=== PATIENT | male | born 1965 | race Caucasian/White ===

== ENCOUNTER → 2020-03-04 14:22 | Outpatient (BNVA) | payer MEDICAID, SELFPAY | PROVIDERS: PCP Family Medicine; Referring Provider Family Medicine; Visit Provider Physician Assistant | DX: Z76.89 Persons encountering health services in other specified circumstances (principal) ==

== ENCOUNTER 2021-08-19 17:16 | Emergency (ER) | payer MEDICAID, SELFPAY ==
[2021-08-19 17:29] VITALS: BP 00/00; PULSE 111; RESP 22; TEMP 36.8; O2SAT 99; BMI 28.3
--- NOTE | 2021-08-19 17:31 | ED.OVERDOSE ---
HPI - Overdose General Chief Complaint: Overdose Stated Complaint: heroin overdose Source: patient and EMS Mode of arrival: EMS Limitations: no limitations History of Present Illness HPI Narrative: 55-year-old male presents via EMS for heroin overdose. States that he used 4 bags of heroin, was given 12 mg of Narcan by a bystander. Patient states that he does not want to be here. complaint: accidental overdose Intent: other (Wanted to get high) Context: Intentional Overdose: drug/ETOH problems Context: Accidental Overdose: wanted to get high Treatments Prior to Arrival: narcan Related Data Home Medications Medication Instructions Recorded Confirmed amlodipine 10 mg tablet 10 mg PO DAILY 03/04/20 aspirin 325 mg tablet,delayed 325 mg PO DAILY 03/04/20 release buprenorphine 8 mg-naloxone 2 mg 2 film BUCCAL DAILY 03/04/20 03/04/20 sublingual film (Suboxone) lisinopril 40 mg tablet 40 mg PO DAILY 03/04/20 omeprazole 20 mg capsule,delayed 20 mg PO DAILY 03/04/20 release Previous Rx's Medication Instructions Recorded bisacodyl 5 mg tablet,delayed 5 mg PO ONCE 1 Days #2 tab 03/04/20 release (Dulcolax (bisacodyl)) miralax See Rx Instructions PO ONCE #238 g 03/04/20 Allergies Allergy/AdvReac Type Severity Reaction Status Date / Time No Known Allergies Allergy Unverified 01/02/20 15:29 [No Known Allergies*] Review of Systems Review of Systems: Constitutional: No Fever, No Chills ENT/Mouth: No sore throat, No Rhinorrhea Eyes: No Eye Pain, No Swelling, No Redness Cardiovascular: No Chest Pain, No SOB Respiratory: No Cough, No Sputum Gastrointestinal: No Nausea, No Vomiting, No Diarrhea, No abdominal Pain Genitourinary: No Dysuria, No Hematuria Musculoskeletal: No joint pain, No Myalgias, No Joint Swelling Skin: No Skin Lesions, No rash Neuro: No Weakness, No Numbness, No Loss of Consciousness, No Dizziness, No Headache Psych: Positive heroin abuse, No Anxiety, No Depression, No SI/HI/AH/VH Heme/Lymph: No Bruising, No Bleeding,No Lymphadenopathy Endocrine: No Polyuria, No Polydipsia Yes all other systems are reviewed and are negative PMFSH Past Medical History Attestation statement: The following information was validated with the patient. Source: old records reviewed Medical History Acid reflux HCV (hepatitis C virus) Hepatic cirrhosis Hernia HTN (hypertension) Family History Family History Father No problems noted. Mother No problems noted. Son No problems noted. Daughter No problems noted. Social History Social History Alcohol intake: current Alcohol intake frequency: a few times a month Alcohol type: beer Cigarette Packs Per Day: 0.50 Advance Directives: No Advance Directives Information Provided: No Current occupational status: unemployed Physical Exam Vital Signs: Vital Signs: Last Vital Signs Temp 98.2 F 08/19/21 17:29 Pulse 108 H 08/19/21 17:55 Resp 22 H 08/19/21 17:55 BP 00/00 L 08/19/21 17:29 Pulse Ox 99 08/19/21 17:55 BMI result Body Mass Index 28.3 Appearance: Alert. Oriented X3. No acute distress. Unkempt. Eyes: Pupils equal, round and reactive to light. Sclera nonicteric. ENT: Pharynx normal. Moist mucous membranes. Neck: Normal inspection. Neck supple. CVS: Normal heart rate and rhythm. Pulses normal. Respiratory: No respiratory distress. Breath sounds normal. Abdomen: Soft and nontender. Skin: Skin warm and dry. Normal skin color. Normal skin turgor. Extremities: No lower extremity edema. Gait well-balanced will coordinated. Neuro: No motor deficit. No sensory deficit. Cranial nerves 2-12 intact. Course Course Course Narrative: 55-year-old male presents as a heroin overdose via EMS. Patient states he does not want to be here, speaking in complete sentences. Angry. Belligerent. Denies suicidal and homicidal ideation. Does not want recovery or detox. Multiple attempts to redirect this patient unsuccessful. Attempting to leave, attempting to enter other person's rooms. As patient is not suicidal or homicidal, is alert oriented x4, answering questions appropriately but in an angry tone. Plan of care is to discharge against medical advice. I did discuss this case with attending, attending agrees plan of care 17:52 patient in the restroom, trying to pull off the sensor flushing device off the wall because he believes the camera. Patient unable to be redirected. Continues to deny suicidal and homicidal ideation. Gait is steady and well balanced. Security called to escort this patient off the facility. MDM - Overdose Differential Diagnosis Differential diagnosis: Likely drug overdose Medical Records Attestation: I reviewed the patient's medical records. Discharge Plan Discharge Clinical Impression: Drug overdose Patient Disposition: Left Against Medical Advice Instructions: Adult Overdose (ED) Additional Instructions: You are leaving against medical advice. Please consider detox. Thank you for choosing this emergency department for evaluation. Please follow-up with primary care physician as needed. Return to the emergency department for any new, concerning, or worsening symptoms. Prescriptions: No Action omeprazole 20 mg capsule,delayed release(DR/EC) 20 mg PO DAILY 0RF lisinopril 40 mg tablet 40 mg PO DAILY 0RF amlodipine 10 mg tablet 10 mg PO DAILY 0RF aspirin 325 mg tablet,delayed release (DR/EC) 325 mg PO DAILY 0RF buprenorphine-naloxone [Suboxone] 8-2 mg film 2 film buccal DAILY 0RF Rx Instructions: place 1 film on inside of (each) cheek bisacodyl [Dulcolax (bisacodyl)] 5 mg tablet,delayed release (DR/EC) 5 mg PO ONCE 1 Days Qty: 2 0RF miralax See Rx Instructions PO ONCE Qty: 238 0RF Rx Instructions: 238 grams PO once; mixed with 64 oz gatorade or crystal light Stand Alone Forms: Against Medical Advice Interventions: ED Discharge Assessment Last Done: 08/19/21 17:55 Discharge Date/Time: 08/19/21 17:56
--- NOTE | 2021-08-19 17:40 | PC.NURSE ---
pt found ambulating in hallways, refusing to stay in room. ambulating to xray, redirected back to room w/o incident.
--- NOTE | 2021-08-19 17:52 | PC.NURSE ---
pt attempting to walk into other pts rooms, had been ripping apart toilet in bathroom. pt has been ambulatory w steady gait, rr even/unlabored. pt does not want detox, debt recovery officer at bedside. provider aware of pt status. pt denies si/hi. security at bedside to guide pt to decon for belongings.
[2021-08-19 17:55] VITALS: PULSE 108; RESP 22; O2SAT 99
== END 2021-08-19 17:56 | disposition left against medical advice (07) ==
PROVIDERS: Emergency Provider Emergency Medicine Emergency Medical Services
DX: T40.1X1A Poisoning by heroin, accidental (unintentional), initial encounter (principal); Y92.9 Unspecified place or not applicable; F17.210 Nicotine dependence, cigarettes, uncomplicated; Z79.899 Other long term (current) drug therapy; Z79.82 Long term (current) use of aspirin; Z71.6 Tobacco abuse counseling
CPT/HCPCS: 99282

== ENCOUNTER 2022-09-25 17:57 | Inpatient (IN) | payer MEDICAID, SELFPAY ==
--- NOTE | ~2022-09-25 | NM_ITS ---
EXAMINATION: BILIARY TRACT IMAGING STUDY WITH CCK CLINICAL INFORMATION: Cirrhosis, possible acalculous cholecystitis.. COMPARISON: No previous biliary scan is available for comparison. Abdominal ultrasound and CT scan of the abdomen and pelvis, both dated 09/25/2022 are available for comparison.. TECHNIQUE: Serial gamma scintillation camera images were obtained over the abdomen for a total observation period of 93 minutes following the intravenous administration of 5.0 mCi Tc-99m Mebrofenin. FINDINGS: There is good concentration of activity in the liver by 5 minutes post injection. Biliary activity is visualized by 15 minutes. The gallbladder is well visualized by 20 minutes. Small bowel is well visualized by 25 minutes. At 6 minutes post radiopharmaceutical injection, a 30-minute infusion of 1.7 micrograms Sincalide was then begun and an additional 40 minutes of images were obtained. There is good emptying of the gallbladder. By the end of the study there is good clearance of activity from the liver and visualization of diffuse small bowel activity. The calculated gallbladder ejection fraction is 73% (normal gallbladder ejection fraction is greater than 35%). NM/NM hepatobiliary w pharm IMPRESSION: Visualization of the gallbladder is evidence of a patent cystic duct and strong evidence against the diagnosis of acute cholecystitis. The common bile duct is patent. Gallbladder emptying and ejection fraction are normal. Liver function appears normal.
--- NOTE | ~2022-09-25 | XR_ITS ---
EXAMINATION: XR CHEST CLINICAL INFORMATION: Chest pain COMPARISON: Prior chest CT 2018 TECHNIQUE: Frontal view of the chest was obtained. FINDINGS: No significant abnormality is noted involving the heart, lungs, mediastinum, bony thorax or soft tissues. XR/XR chest 1V IMPRESSION: Unremarkable examination.
--- NOTE | ~2022-09-25 | CT_ITS ---
EXAMINATION: CT ABDOMEN AND PELVIS WITH CONTRAST CLINICAL INFORMATION: Question pancreatitis COMPARISON: 11/16/2017 TECHNIQUE: Multidetector volumetric images were obtained from the superior aspect of the liver through the pubic symphysis following administration 85 mL of Omnipaque 350 intravenous contrast. Sagittal and coronal reformatted images were obtained on the technologist's workstation. Oral contrast: No This CT examination was performed using dose optimization techniques as appropriate, variously including the following: *Automated exposure control *Adjustment of mA and/or kV according to patient size (this includes techniques or standardized protocols for targeted exams where dose is matched to indication/reason for exam; i.e. extremities or head) *Use of iterative reconstruction technique DLP: 616 mGy-cm FINDINGS: LUNG BASES: Bibasilar atelectasis. Coronary artery calcifications. LIVER, GALLBLADDER, AND BILIARY TREE: The liver is normal in size, shape, and attenuation. No focal hepatic lesion or biliary ductal dilatation is present. Trace perihepatic ascites. Abnormal appearance of the gallbladder with prominent gallbladder wall thickening. No stones are seen on this study. Inflammation tracks inferiorly from the gallbladder along the right anterior pararenal space. PANCREAS: The pancreatic parenchyma is homogenous. No peripancreatic inflammation. No pancreatic ductal dilatation. SPLEEN: Unremarkable. ADRENAL GLANDS: Normal left adrenal gland. Indeterminate nodule in the right adrenal gland measuring 2.7 cm, measuring 43 Hounsfield units. This is similar to the 2018 study. KIDNEYS AND URETERS: The kidneys are normal in size, shape, and attenuation. No hydronephrosis, hydroureter, or calculi seen. No perinephric stranding. Multiple simple cysts of the left kidney. No specific follow-up recommended. BLADDER: Unremarkable. GASTROINTESTINAL TRACT: The stomach is unremarkable. Normal caliber small bowel. No obstruction. No colonic wall thickening or acute inflammation. Normal appendix. No free air. ABDOMINAL WALL: Small right inguinal hernia containing ascites. LYMPH NODES: Normal. VASCULAR: Normal caliber aorta. Moderate atherosclerotic calcification. PELVIC VISCERA: The prostate and seminal vesicles are unremarkable. OSSEOUS STRUCTURES: No acute or suspicious osseous abnormality. Degenerative change throughout the spine. CT/CT abdomen pelvis w IV con IMPRESSION: 1. Abnormal appearance of the gallbladder with prominent gallbladder wall thickening and adjacent inflammation. No stones are seen on this study. This appearance is concerning for acute cholecystitis. This can be further evaluated with ultrasound. 2. Normal appearance of the pancreas. No peripancreatic inflammation. 3. Indeterminate 2.7 cm right adrenal gland nodule. This is similar to the 2018 study. Recommend consideration of laboratory evaluation for possible pheochromocytoma and then subsequent evaluation with Adrenal Protocol CT. Fleischner guidelines were followed.
--- NOTE | ~2022-09-25 | US_ITS ---
EXAMINATION: US ABDOMEN LIMITED CLINICAL INFORMATION: Cholelithiasis. Question cholecystitis.. COMPARISON: CT from today. TECHNIQUE: Real-time imaging of the gallbladder. FINDINGS: GALLBLADDER: Prominent gallbladder wall thickening measuring up to 1.1 cm with wall edema. No gallstones or sludge seen. COMMON BILE DUCT: Prominent in caliber measuring 0.8 cm in diameter. FREE FLUID: None. US/US abdomen limited IMPRESSION: Prominent gallbladder wall thickening with wall edema. No gallstones or sludge seen. Findings are concerning for acute acalculus cholecystitis.
[2022-09-25 18:06] VITALS: BP 132/90; BP 154/89; PULSE 75; PULSE 77; RESP 18; TEMP 36.7; O2SAT 95; O2SAT 98; BMI 28.5
[2022-09-25 18:12] VITALS: BP 154/89; PULSE 77; RESP 12
--- NOTE | 2022-09-25 19:40 | ED.ABDPAIN ---
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 Related Data Home Medications Medication Instructions Recorded Confirmed amlodipine 10 mg tablet 10 mg PO DAILY 03/04/20 aspirin 325 mg tablet,delayed 325 mg PO DAILY 03/04/20 release buprenorphine 8 mg-naloxone 2 mg 2 film buccal DAILY 03/04/20 03/04/20 sublingual film (Suboxone) lisinopril 40 mg tablet 40 mg PO DAILY 03/04/20 omeprazole 20 mg capsule,delayed 20 mg PO DAILY 03/04/20 release Previous Rx's Medication Instructions Recorded bisacodyl 5 mg tablet,delayed 5 mg PO ONCE colonoscopy prep 1 03/04/20 release (Dulcolax (bisacodyl)) day #2 tabs miralax See Rx Instructions PO ONCE #238 03/04/20 grams Allergies Allergy/AdvReac Type Severity Reaction Status Date / Time No Known Allergies Allergy Unverified 01/02/20 15:29 [No Known Allergies*] Review of Systems Review of Systems Yes all other systems are reviewed and are negative [facility] Past Medical History Medical History Acid reflux HCV (hepatitis C virus) Hepatic cirrhosis Hernia HTN (hypertension) Family History Family History Father No problems noted. Mother No problems noted. Son No problems noted. Daughter No problems noted. Social History Social History Alcohol intake: current Alcohol intake frequency: 3 or more drinks per day Alcohol type: beer Cigarette Packs Per Day: 0.50 Smoked in Last 30 Days: Yes Use of substances other than those prescribed or required for medical reasons: Yes Substance Use Type: Crack/Cocaine Advance Directives: No Advance Directives Information Provided: No Current occupational status: unemployed Physical Exam ED Vital Signs: Vital Signs - 24 hr 09/25/22 18:06 09/25/22 18:12 09/25/22 20:00 Temperature 98.1 F 98.6 F Pulse Rate 77 77 80 Respiratory Rate 18 12 20 Blood Pressure 154/89 H 154/89 H 154/100 H Pulse Oximetry 95 96 Oxygen Delivery Method Room Air Room Air 09/25/22 22:00 Temperature 98.6 F Pulse Rate 84 Respiratory Rate 14 Blood Pressure 154/89 H Pulse Oximetry 99 Oxygen Delivery Method Room Air BMI result Body Mass Index 28.5 Appearance: Alert. Oriented X3. In moderate distress. Eyes: PERRLA, No Nystagmus ENT: Pharynx normal. Oral Mucosa moist Neck: Normal inspection. Neck supple. CVS: Normal heart rate and rhythm. Pulses normal. Respiratory: No respiratory distress. Equal air entry bilateral, no wheezing/rales/rhonchi Abdomen: Soft, tenderness in epigastric and right upper quadrant with guarding, no rebound tenderness Bowel sounds are present, no mass palpable, no CVA tenderness Skin: Skin warm and dry. Normal skin color. Normal skin turgor. Extremities: No lower extremity edema. No calf tenderness Neuro: Oriented X 3. No motor deficit. No sensory deficit.No cerebellar signs , cranial nerves II-XII intact Medical Decision Making Medical Decision Making [facility] Narrative: Patient has upper abdominal pain CT scan and ultrasound showed acalculous cholecystitis with fluid around the gallbladder leg case discussed with Dr. Guillermo a surgeon his likely from alcoholic cirrhosis and ascites not really cholecystitis not a surgical case will see the patient on the floor , will admit patient to the medical service Differential Diagnosis Differential Diagnoses: The differential diagnosis associated with the presentation includes Acute cholecystitis/pancreatitis/peptic ulcer disease/alcoholic gastritis Consult Healthcare Provider Management of the patient was discussed with: Hospitalist Lab Data [facility] Lab Attestation statement: I reviewed the patient's lab results. 09/25/22 20:24 09/25/22 20:56 Labs: Lab Results 09/25/22 09/25/22 09/25/22 Range/Units 20:24 20:24 20:24 WBC 13.5 H (4.8-10.8) X10*3/uL RBC 4.82 (4.60-5.80) X10*6/uL Hgb 15.0 (14.0-18.0) g/dl Hct 43.6 (42.0-52.0) % MCV 90.5 (80.0-98.0) fL MCH 31.1 (27.0-33.0) pg MCHC 34.4 (31.0-36.0) g/dl RDW 11.9 (11.0-16.0) % Plt Count 204 (160-400) X10*3/uL MPV 9.1 L (9.4-12.4) fL Immature Gran % (Auto) 0.4 (0.0-0.4) % Neut % (Auto) 88.9 H (45-73) % Lymph % (Auto) 5.7 L (20-40) % [place] % (Auto) 4.5 (2-11) % Eos % (Auto) 0.1 (0-4) % Baso % (Auto) 0.4 (0-2) % Lymph # (Auto) 0.8 L (1.2-4.9) X10*3/uL [place] # (Auto) 0.6 (0.1-1.2) X10*3/uL Eos # (Auto) 0.0 (0.0-0.4) X10*3/uL Baso # (Auto) 0.1 (0.0-0.2) X10*3/uL Abs Immat Gran (auto) 0.06 H (0.00-0.03) X10*3/uL Absolute Neuts (auto) 12.0 H (2.0-8.3) x10*3/uL Absolute Nucleated RBC 0.000 (0.0-0.012) X10*3/uL Nucleated RBC % (auto) 0.0 (0.0-0.2) /100WBC PT 10.5 (10.0-13.1) SEC INR 0.9 (0.9-1.1) Sodium (135-145) mmol/L Potassium (3.3-5.1) mmol/L Chloride (96-108) mmol/L Carbon Dioxide (22-29) mmol/L Anion Gap (12-20) BUN (9-16) mg/dL Creatinine (0.5-1.4) mg/dL Estim Creat Clear Calc Estimated GFR Random Glucose (60-115) mg/dL Lactic Acid (0.5-2.0) mmol/L Calcium (8.4-10.2) mg/dL Magnesium (1.6-2.6) mg/dL Total Bilirubin (0.0-1.0) mg/dL AST (5-37) U/L ALT (0-40) U/L Alkaline Phosphatase (39-117) U/L Troponin I High Sens < 2.7 (<3.5-35.0) ng/L Total Protein (6.5-8.0) g/dL Albumin (3.5-5.0) g/dL Lipase (8-78) U/L Ethyl Alcohol mg/dL 09/25/22 09/25/22 Range/Units 20:56 23:08 WBC (4.8-10.8) X10*3/uL RBC (4.60-5.80) X10*6/uL Hgb (14.0-18.0) g/dl Hct (42.0-52.0) % MCV (80.0-98.0) fL MCH (27.0-33.0) pg MCHC (31.0-36.0) g/dl RDW (11.0-16.0) % Plt Count (160-400) X10*3/uL MPV (9.4-12.4) fL Immature Gran % (Auto) (0.0-0.4) % Neut % (Auto) (45-73) % Lymph % (Auto) (20-40) % [place] % (Auto) (2-11) % Eos % (Auto) (0-4) % Baso % (Auto) (0-2) % Lymph # (Auto) (1.2-4.9) X10*3/uL [place] # (Auto) (0.1-1.2) X10*3/uL Eos # (Auto) (0.0-0.4) X10*3/uL Baso # (Auto) (0.0-0.2) X10*3/uL Abs Immat Gran (auto) (0.00-0.03) X10*3/uL Absolute Neuts (auto) (2.0-8.3) x10*3/uL Absolute Nucleated RBC (0.0-0.012) X10*3/uL Nucleated RBC % (auto) (0.0-0.2) /100WBC PT (10.0-13.1) SEC INR (0.9-1.1) Sodium 138 (135-145) mmol/L Potassium 4.8 (3.3-5.1) mmol/L Chloride 100 (96-108) mmol/L Carbon Dioxide 27 (22-29) mmol/L Anion Gap 16 (12-20) BUN 11 (9-16) mg/dL Creatinine 0.78 (0.5-1.4) mg/dL Estim Creat Clear Calc 113.5 Estimated GFR > 60 Random Glucose 116 H (60-115) mg/dL Lactic Acid 1.8 (0.5-2.0) mmol/L Calcium 9.1 (8.4-10.2) mg/dL Magnesium 1.8 (1.6-2.6) mg/dL Total Bilirubin 0.5 (0.0-1.0) mg/dL AST 55 H (5-37) U/L ALT 29 (0-40) U/L Alkaline Phosphatase 118 H (39-117) U/L Troponin I High Sens (<3.5-35.0) ng/L Total Protein 7.3 (6.5-8.0) g/dL Albumin 4.0 (3.5-5.0) g/dL Lipase 54 (8-78) U/L Ethyl Alcohol 128 mg/dL Medications Administered Generic Name Dose Route Start Last Admin Trade Name Freq PRN Reason Stop Dose Admin Thiamine HCl 100 mg/ Sodium 101 mls @ 202 mls/hr 09/26/22 00:00 09/26/22 00:23 Chloride IV 202 mls/hr DAILY ELIZABETH Administration Sodium Chloride 3 ml 09/26/22 00:00 09/26/22 00:26 0.9 % Sodium Chloride Flush 3 Ml Syringe IVFLUSH 3 ml QSHIFT ELIZABETH Administration Discontinued Medications Generic Name Dose Route Start Last Admin Trade Name Freq PRN Reason Stop Dose Admin Sodium Chloride 1,000 mls @ 999 mls/hr 09/25/22 20:09 09/25/22 21:30 Ns IV 09/25/22 21:09 Infused .Q1H1M ONE Infusion Piperacillin Sod/Tazobactam 50 mls @ 100 mls/hr 09/25/22 22:24 09/25/22 23:40 Sod 3.375 gm/ Sodium Chloride IV 09/25/22 22:53 Infused ONCE ONE Infusion Iohexol 100 ml 09/25/22 21:43 09/25/22 21:43 Iohexol 350 Mg/Ml 100 Ml Infus..Btl IV 09/25/22 21:44 85 ml ONCE ONE Administration Morphine Sulfate 4 mg 09/25/22 20:12 09/25/22 20:28 Morphine Sulfate 4 Mg/Ml Cartridge IVPUSH 09/25/22 20:13 4 mg ONCE ONE Administration Protocol Ondansetron HCl 4 mg 09/25/22 20:09 09/25/22 20:29 Ondansetron Hcl 4 Mg/2 Ml Vial IVPUSH 09/25/22 20:10 4 mg ONCE ONE Administration Discharge Plan Discharge Clinical Impression: Acute acalculous cholecystitis, Alcoholic cirrhosis of liver Patient Disposition: Admitted As Inpatient
--- OUTSIDE RECORDS SUMMARY | 2022-09-25 19:50 | XMS_ITS | Continuity of Care Document ---
Author Name Unknown Organization [facility] ter Address [address] [place] [id number]- Care Team Providers Care Crepe Sole Scourer Name Role Phone Vidhya BERMUDEZ, Willie Elliott Primary Care Physician [phone] Encounter [facility] [place] Date(s): 12/13/21 - 12/14/[address] [address]- Encounter Diagnosis Opiate overdose(Final) - 12/13/21 Discharge Disposition: A-D/C Home Attending Physician: Hunter Mason DO Admitting Physician: Hunter Mason DO Referring Physician: Not on Staff, Referring MD Allergies, Adverse Reactions, Alerts No Known Allergies Medications Aspir 81 Oral Enteric Coated Tablet 1 tablet = 81 mg, By Mouth, Daily, # 90 tablet, 3 Refills, Maintenance, EC Tablet Start Date: 01/06/11 Stop Date: 01/01/12 Status: Ordered atorvastatin 20 mg oral tablet 1 tablet = 20 mg, By Mouth, Daily, Per pt history currently taking 20 mg once a day., # 30 tablet, 5 Refills, Maintenance, Tablet Start Date: 01/06/11 Stop Date: 07/05/11 Status: Ordered clopidogrel 75 mg oral tablet 1 tablet = 75 mg, By Mouth, Daily, # 30 tablet, 5 Refills, Maintenance, Tablet Start Date: 07/31/09 Status: Ordered Flexeril 10 mg oral tablet 10, mg, 1, tablet, By Mouth, 3 times a day, 30, tablet, 0, 0, 02/20/07 9:23:04, do not drive when taking this medication, Print JESSICA Number, ADS [id number], 68, Constant Indicator Start Date: 02/20/07 Stop Date: 03/02/07 Status: Ordered lisinopril 10 mg oral tablet 1 tablet = 10 mg, By Mouth, Daily, Maintenance Start Date: 07/29/09 Status: Ordered lisinopril 20 mg oral tablet 1 tablet = 20 mg, By Mouth, Daily, # 30 tablet, 5 Refills, Maintenance, Tablet Start Date: 07/31/09 Status: Ordered metoprolol 25 mg oral tablet 1 tablet = 25 mg, By Mouth, 2 times a day, # 60 tablet, 5 Refills, Maintenance, Tablet Start Date: 07/29/09 Status: Ordered nitroglycerin 0.4 mg sublingual tablet 1 tablet = 0.4 mg, Sublingual, Every 5 minutes, PRN Chest Pain, # 25 tablet, 3 Refills, Maintenance, Tablet Start Date: 07/29/09 Status: Ordered Ultram 50 mg oral tablet 50, mg, 1, tablet, By Mouth, Every 4 hours, 30, tablet, 0, 0, 02/20/07 9:22:00, Print JESSICA Number, ADS [id number], 51, Constant Indicator Start Date: 02/20/07 Stop Date: 02/25/07 Status: Ordered Problem List Condition Effective Dates Status Health Status Inform ant Back pain(Confirmed) Active Hypertension(Confirmed) Active Vital Signs Most recent to oldest [Reference Range]: 1 2 3 Oxygen Saturation [94-100 %] 94 % (12/13/21 9:41 PM) 100 % (12/13/21 7:26 PM) Pulse Rate [55-90 bpm] 85 bpm (12/13/21 9:41 PM) 110 bpm *H* (12/13/21 7:26 PM) Blood Pressure [90-138/55-84 mm Hg] 143/102mm Hg *H* (12/13/21 9:41 PM) Respiratory Rate [16-30 br/min] 16 br/min (12/13/21 9:41 PM) 16 br/min (12/13/21 8:35 PM) 20 br/min (12/13/21 7:26 PM) Temperature [96.8-100.4 DegF] 98.3 DegF (12/13/21 9:41 PM) Mode of Delivery (Oxygen) Room air (12/13/21 9:41 PM) Room air (12/13/21 7:26 PM) Blood pressure sites Arm, left (12/13/21 9:41 PM) Temperature Route Oral (12/13/21 9:41 PM) Care Team Personnel Name: Vidhya BERMUDEZ, Willie Elliott Address: [address] [place] [address]- [place]
--- OUTSIDE RECORDS SUMMARY | 2022-09-25 19:50 | XMS_ITS | Continuity of Care Document ---
Author Name Unknown Organization [facility] ter Address [address] [place] [id number]- Care Team Providers Care Illuminating Engineer Name Role Phone Vdihya BERMUDEZ, Willie Elliott Primary Care Physician Encounter [facility] [place] Date(s): 01/05/22 - 01/05/[address] [address]- Encounter Diagnosis Laceration of head(Final) - 01/05/22 Alcohol intoxication(Final) - 01/05/22 Discharge Disposition: A-D/C Home Attending Physician: Valdez Morton MD Admitting Physician: Valdez Morton MD Referring Physician: Not on Staff, Referring MD [...] Most recent to oldest [Reference Range]: 1 Oxygen Saturation [94-100 %] 97 % (01/05/22 1:41 AM) Pulse Rate [55-90 bpm] 85 bpm (01/05/22 1:41 AM) Blood Pressure [90-138/55-84 mm Hg] 155/ 87mm Hg *H* (01/05/22 1:41 AM) Respiratory Rate [16-30 br/min] 18 br/mi n (01/05/22 1:41 AM) Temperature [96.8-100.4 DegF] 98.1 DegF (01/05/22 1:41 AM) Mode of Delivery (Oxygen) Room air (01/05/22 1:41 AM) Blood pressure sites Arm, right (01/05/22 1:41 AM) Temperature Route Oral (01/05/22 1:41 AM) Care Team Personnel Name: Willie Kee NP Address: [address] [place] [id number]-
--- OUTSIDE RECORDS SUMMARY | 2022-09-25 19:50 | XMS_ITS | Continuity of Care Document ---
Author Name Unknown Organization [facility] ter Address [address] [place] [id number]- Care Team Providers Care Piercing Mill Operator Name Role Phone Vidhya BERMUDEZ, Willie Elliott Primary Care Physician Encounter [facility] [place] Date(s): 01/10/22 - 01/10/[address] [address]- Discharge Disposition: A-D/C Walkout Attending Physician: Not on Staff, Attending MD Admitting Physician: Not on Staff, Admitting MD Referring Physician: Not on Staff, Referring [...] Most recent to oldest [Reference Range]: 1 Height 173 cm (01/10/22 11: AM) Weight 81.7 kg (01/10/22 11: AM) Oxygen Saturation [94-100 %] 98 % (01/10/22: AM) Pulse Rate [55-90 bpm] 95 bpm *H* (01/10/22: AM) Body Mass Index [18.5-24.99 kg/m2] 27.3 kg/m2 *H* (01/10/22: AM) Blood Pressure [90-138/55-84 mm Hg] 135/ 88mm Hg (01/10/22: AM) Respiratory Rate [16-30 br/min] 16 br/mi n (01/10/22: AM) Temperature [96.8-100.4 DegF] 98.2 DegF (01/10/22: AM) Mode of Delivery (Oxygen) Room air (01/10/22: AM) Blood pressure sites Arm, right (01/10/22: AM) Temperature Route Oral (01/10/22 11: AM) Dry Weight 81.7 kg (01/10/22 11:27 AM) Weight Obtained Via Standing scale (01/10/22 11:27 AM) Dry Weight Obtained Via Standing scale (01/10/22 11:27 AM) Care Team Personnel Name: Vidhya BERMUDEZ, Willie Elliott Address: [address] [place] [address] [place] [address]-
[2022-09-25 20:00] VITALS: BP 154/100; PULSE 80; RESP 20; TEMP 37; O2SAT 96
--- NOTE | 2022-09-25 20:10 | ECG_ITS ---
Test Reason : CHEST PAIN Blood Pressure : / mmHG Vent. Rate : 084 BPM Atrial Rate : 084 BPM P-R Int : 158 ms QRS Dur : 112 ms QT Int : 384 ms P-R-T Axes : 039 028 036 degrees QTc Int : 453 ms Normal sinus rhythm Incomplete right bundle branch block Borderline ECG When compared with ECG of 16-NOV-2017 22:54, No significant change was found Referred By: Wan Cervantes Electronically Signed By:David Bosch
[2022-09-25] MEDS: Morphine Sulfate 4 MG/ML CARTRIDGE IVPUSH (20:28)
[2022-09-25] MEDS: 0.9 % Sodium Chloride 1,000 ML 999 ML IV (20:28)
[2022-09-25 20:29] LABS: MANUAL DIFF FLAG NO
[2022-09-25] MEDS: ondansetron HCL 4 MG/2 ML VIAL IVPUSH (20:29)
[2022-09-25 20:31] LABS: Basophils Absolute Auto 0.1 X10*3/uL (0.0-0.2); Basophils Percent Auto 0.4 % (0-2); Eosinophils Percent Auto 0.1 % (0-4); Hematocrit 43.6 % (42.0-52.0); Imm Gran Abs Auto 0.06 X10*3/uL (0.00-0.03); Imm Gran Pct Auto 0.4 % (0.0-0.4); Lymphocytes Absolute Auto 0.8 X10*3/uL (1.2-4.9); Lymphocytes Percent Auto 5.7 % (20-40); Mean Corpuscular HGB Conc 34.4 g/dl (31.0-36.0); Mean Corpuscular Hemoglobin 31.1 pg (27.0-33.0); Mean Corpuscular Volume 90.5 fL (80.0-98.0); Mean Platelet Volume 9.1 fL (9.4-12.4); Monocytes Absolute Auto 0.6 X10*3/uL (0.1-1.2); Monocytes Percent Auto 4.5 % (2-11); Neutrophils Percent Auto 88.9 % (45-73); Platelet Count 204 X10*3/uL (160-400); Red Blood Count 4.82 X10*6/uL (4.60-5.80); Red Cell Distribution Width 11.9 % (11.0-16.0); White Blood Count 13.5 X10*3/uL (4.8-10.8)
[2022-09-25 20:42] LABS: INTERNATIONAL NORM RATIO 0.9 (0.9-1.1); Prothrombin Time 10.5 SEC (10.0-13.1)
[2022-09-25 20:54] LABS: Troponin-I High Sensitivity < 2.7 ng/L (<3.5-35.0)
[2022-09-25 21:18] LABS: Alanine Aminotransferase 29 U/L (0-40); Alkaline Phosphatase 118 U/L (39-117); Anion Gap 16 (12-20); Aspartate Amino Transferase 55 U/L (5-37); Bilirubin Total 0.5 mg/dL (0.0-1.0); Blood Urea Nitrogen 11 mg/dL (9-16); Calcium 9.1 mg/dL (8.4-10.2); Carbon Dioxide 27 mmol/L (22-29); Chloride 100 mmol/L (96-108); Creatinine Clr Calc Pharmacy 113.5; Estimated Glomerular Filt Rate > 60; Ethanol 128 mg/dL; Glucose Random 116 mg/dL (60-115); Lipase 54 U/L (8-78); Magnesium 1.8 mg/dL (1.6-2.6); Potassium 4.8 mmol/L (3.3-5.1); Sodium 138 mmol/L (135-145); Total Protein 7.3 g/dL (6.5-8.0)
[2022-09-25] MEDS: iohexoL 350 MG/ML 100 ML INFUS..BTL IV (21:43)
[2022-09-25 22:00] VITALS: BP 154/89; PULSE 84; RESP 14; TEMP 37; O2SAT 99
[2022-09-25] MEDS: Piperacillin Sodium/Tazobactam 3.375 GM in 0.9 % Sodium Chloride 50 ML IV (23:10)
[2022-09-25 23:23] LABS: Lactic Acid 1.8 mmol/L (0.5-2.0)
--- NOTE | 2022-09-25 23:52 | P.HPHOSP_ITS ---
History of Present Illness Date of Service: 09/25/22 Chief Complaint: Abdominal pain This is a 57-year-old male with pertinent history of essential hypertension, polysubstance use disorder, gastroesophageal reflux disease who presents to the emergency department for evaluation of abdominal discomfort. Patient states he is having right upper quadrant abdominal pain that started 1 day prior to presentation. It has been constant and without any relief. It radiates to the epigastric region and the back. No relieving factors. Also has associated nausea. No vomiting. Patient denies fever, chills, chest discomfort, palpitations, shortness of breath, changes in urinary or bowel habits. Admits to drinking beers every day and using cocaine. In the emergency department, imaging concerning for acalculous cholecystitis Review of Systems Constitutional: Constitutional: Reports lethargy Cardiovascular: Cardiovascular: Reports no additional cardiovascular complaints Respiratory: Respiratory: Reports no additional respiratory complaints Gastrointestinal: Gastrointestinal: Reports abdominal pain and Reports nausea Genitourinary: Genitourinary: Reports no additional male genitourinary c omplaints [facility] Medical History Acid reflux HCV (hepatitis C virus) Hepatic cirrhosis Hernia HTN (hypertension) Family History Father No problems noted. Mother No problems noted. Son No problems noted. Daughter No problems noted. Social History Alcohol intake: current Alcohol intake frequency: 3 or more drinks per day Alcohol type: beer Cigarette Packs Per Day: 0.50 Smoked in Last 30 Days: Yes Use of substances other than those prescribed or required for medical reasons: Yes Substance Use Type: Crack/Cocaine Advance Directives: No Advance Directives Information Provided: No Current occupational status: unemployed Meds Allergies Allergy/AdvReac Type Severity Reaction Status Date / Time No Known Allergies Allergy Unverified 01/02/20 15:29 [No Known Allergies*] Active Medications: Current Medications Pharmacy Consult (Consult Rx Perform Med Rec) 1 each MISCELLANE ONCE PRN PRN Reason: Consult order Home Medications Medication Instructions Recorded Confirmed Last Taken Type amlodipine 10 mg tablet 10 mg PO DAILY 03/04/20 Unknown History aspirin 325 mg tablet,delayed 325 mg PO DAILY 03/04/20 Unknown History release buprenorphine 8 mg-naloxone 2 mg 2 film buccal DAILY 03/04/20 03/04/20 Unknown History sublingual film (Suboxone) lisinopril 40 mg tablet 40 mg PO DAILY 03/04/20 Unknown History omeprazole 20 mg capsule,delayed 20 mg PO DAILY 03/04/20 Unknown History release Physical Exam Vital Signs and Narrative: Vital Signs: Last Vital Signs Temp 98.6 F 09/25/22 22:00 Pulse 84 09/25/22 22:00 Resp 14 09/25/22 22:00 BP 154/89 H 09/25/22 22:00 Pulse Ox 99 09/25/22 22:00 O2 Del Method Room Air 09/25/22 22:00 BMI result Body Mass Index 28.5 Middle-aged male lying in bed in mild distress Neck supple, no JVD Regular rate and rhythm, S1-S2 heard Regular breath sounds bilaterally, no wheezing or crackles appreciated Abdomen with right upper quadrant tenderness, mild guarding, no rebound tenderness, no rigidity Patient is awake, alert and oriented to self, place, time and person ; no focal motor deficit Psych: Normal mood No pedal edema Results Labs 09/25/22 20:24 09/25/22 20:56 Labs: Laboratory Results - last 24 hr 09/25/22 09/25/22 09/25/22 20:24 20:24 20:24 MCV 90.5 MCH 31.1 MCHC 34.4 RDW 11.9 Plt Count 204 MPV 9.1 L Immature Gran % (Auto) 0.4 Neut % (Auto) 88.9 H Lymph % (Auto) 5.7 L [place] % (Auto) 4.5 Eos % (Auto) 0.1 Baso % (Auto) 0.4 Lymph # (Auto) 0.8 L [place] # (Auto) 0.6 Eos # (Auto) 0.0 Baso # (Auto) 0.1 Abs Immat Gran (auto) 0.06 H Absolute Neuts (auto) 12.0 H Absolute Nucleated RBC 0.000 Nucleated RBC % (auto) 0.0 PT 10.5 INR 0.9 Anion Gap Estim Creat Clear Calc Estimated GFR Random Glucose Lactic Acid Calcium Magnesium Total Bilirubin AST ALT Alkaline Phosphatase Troponin I High Sens < 2.7 Total Protein Albumin Lipase Ethyl Alcohol 09/25/22 09/25/22 20:56 23:08 MCV MCH MCHC RDW Plt Count MPV Immature Gran % (Auto) Neut % (Auto) Lymph % (Auto) [place] % (Auto) Eos % (Auto) Baso % (Auto) Lymph # (Auto) [place] # (Auto) Eos # (Auto) Baso # (Auto) Abs Immat Gran (auto) Absolute Neuts (auto) Absolute Nucleated RBC Nucleated RBC % (auto) PT INR Anion Gap 16 Estim Creat Clear Calc 113.5 Estimated GFR > 60 Random Glucose 116 H Lactic Acid 1.8 Calcium 9.1 Magnesium 1.8 Total Bilirubin 0.5 AST 55 H ALT 29 Alkaline Phosphatase 118 H Troponin I High Sens Total Protein 7.3 Albumin 4.0 Lipase 54 Ethyl Alcohol 128 Imaging Radiologist's Impressions: Impressions Chest X-Ray 09/25/22 20:30 IMPRESSION: Unremarkable examination. Abdomen/Pelvis CT 09/25/22 21:44 IMPRESSION: 1. Abnormal appearance of the gallbladder with prominent gallbladder wall thickening and adjacent inflammation. No stones are seen on this study. This appearance is concerning for acute cholecystitis. This can be further evaluated with ultrasound. 2. Normal appearance of the pancreas. No peripancreatic inflammation. 3. Indeterminate 2.7 cm right adrenal gland nodule. This is similar to the 2018 study. Recommend consideration of laboratory evaluation for possible pheochromocytoma and then subsequent evaluation with Adrenal Protocol CT. Fleischner guidelines were followed. Abdomen Ultrasound 09/25/22 23:23 IMPRESSION: Prominent gallbladder wall thickening with wall edema. No gallstones or sludge seen. Findings are concerning for acute acalculus cholecystitis. Assessment and Plan (1) Acute acalculous cholecystitis: Status: Acute Plan This is a 57-year-old male with pertinent history of essential hypertension, polysubstance use disorder, gastroesophageal reflux disease who presents to the emergency department for evaluation of abdominal discomfort. #. Sepsis due to Acute acalculus cholecystitis. Will admit patient and initiate empiric IV antibiotics. IV morphine p.r.n. for pain control. Consulted General surgery, appreciate assistance. Will keep patient NPO. Lactic acid and blood cultures obtained. Resuscitated with IV crystalloids #. Alcohol use disorder. Monitor CIWA and initiating thiamine. Consulted Addiction Team. Obtain folate levels #. Cocaine use disorder. Monitor for withdrawal. UDS pending. Consulted Addiction Team #. Adrenal gland nodule on imaging. Obtaining urine and plasma fractionated metanephrines and catecholamines. #. Gastroesophageal reflux disease: On PPI #. Essential hypertension. Continue home antihypertensives Med rec pending DVT prophylaxis: Defer Lovenox until surgical evaluation. SCDs Full Code NPO for surgical evaluation Admit as inpatient and will require two night minimum hospital stay for IV antibiotics Time Spent With Patient Time: Total time managing care of this patient today ____ minutes. Quality Stroke Does the patient have a stroke diagnosis?: No VTE Prior VTE?: No VTE Risk Level:: Medical - moderate - high VTE Device Contraindication: N/A - Device Ordered VTE Drug Contraindication: Treatment Not Indicated
[2022-09-25 23:55] VITALS: BP 155/101; PULSE 81; RESP 12; TEMP 37; O2SAT 93
--- NOTE | 2022-09-26 00:17 | PC.NURSE ---
Report given to Romelia.
[2022-09-26] MEDS: Thiamine HCL 100 MG in 0.9 % Sodium Chloride 100 ML 202 MG IV ×2 (00:23→08:54)
[2022-09-26] MEDS: 0.9 % Sodium Chloride Flush 3 ML SYRINGE IVFLUSH ×3 (00:26→15:49)
[2022-09-26 00:47] LABS: Amphetamine Screen Urine Not Detected (Not Detect); Barbiturates, Urine Not Detected (Not Detect); Benzodiazepines Screen Urine Not Detected (Not Detect); Cannabinoid Screen Urine POSITIVE (Not Detect); Cocaine Screen Urine POSITIVE (Not Detect); Fentanyl, urine Not Detected (Not Detect); Opiate Screen Urine POSITIVE (Not Detect); Phencyclidine Screen Urine Not Detected (Not Detect)
[2022-09-26 00:57] LABS: Vitamin B12 193 pg/mL (200-900)
[2022-09-26 00:59] VITALS: BP 186/83; PULSE 104; RESP 18; TEMP 36.8; O2SAT 98
[2022-09-26 03:43] VITALS: BP 162/82; PULSE 88; RESP 18; TEMP 36.6; O2SAT 97
[2022-09-26] MEDS: Morphine Sulfate 4 MG/ML CARTRIDGE IVPUSH (06:25)
[2022-09-26 06:26] LABS: MANUAL DIFF FLAG NO
[2022-09-26] MEDS: Piperacillin Sodium/Tazobactam 4.5 GM in 0.9 % Sodium Chloride 100 ML IV ×3 (06:26→21:12)
[2022-09-26 06:50] LABS: Basophils Percent Auto 0.4 % (0-2); Eosinophils Absolute Auto 0.1 X10*3/uL (0.0-0.4); Eosinophils Percent Auto 1.2 % (0-4); Hematocrit 38.6 % (42.0-52.0); Hemoglobin 13.2 g/dl (14.0-18.0); Imm Gran Abs Auto 0.03 X10*3/uL (0.00-0.03); Imm Gran Pct Auto 0.4 % (0.0-0.4); Lymphocytes Absolute Auto 1.6 X10*3/uL (1.2-4.9); Lymphocytes Percent Auto 19.2 % (20-40); Mean Corpuscular HGB Conc 34.2 g/dl (31.0-36.0); Mean Corpuscular Hemoglobin 31.3 pg (27.0-33.0); Mean Corpuscular Volume 91.5 fL (80.0-98.0); Mean Platelet Volume 9.1 fL (9.4-12.4); Monocytes Absolute Auto 0.9 X10*3/uL (0.1-1.2); Monocytes Percent Auto 11.3 % (2-11); Neutrophils Absolute Auto 5.5 x10*3/uL (2.0-8.3); Neutrophils Percent Auto 67.5 % (45-73); Platelet Count 179 X10*3/uL (160-400); Red Blood Count 4.22 X10*6/uL (4.60-5.80); Red Cell Distribution Width 11.9 % (11.0-16.0); White Blood Count 8.1 X10*3/uL (4.8-10.8)
[2022-09-26 06:54] LABS: Anion Gap 12 (12-20); Blood Urea Nitrogen 10 mg/dL (9-16); Calcium 8.8 mg/dL (8.4-10.2); Carbon Dioxide 29 mmol/L (22-29); Chloride 100 mmol/L (96-108); Creatinine Clr Calc Pharmacy 118.1; Estimated Glomerular Filt Rate > 60; Glucose Random 94 mg/dL (60-115); Potassium 4.2 mmol/L (3.3-5.1); Sodium 137 mmol/L (135-145)
[2022-09-26 07:42] VITALS: BP 166/96; PULSE 70; RESP 20; TEMP 37.2; O2SAT 95
--- NOTE | 2022-09-26 07:51 | HO.PM.IMPN ---
Subjective Subjective Date of Service: 09/26/22 Review of Systems Follow up abd pain still with pain no nausea or vomiting Physical Exam Vital Signs: Vital Signs: Last Vital Signs Temp 98.9 F 09/26/22 07:42 Pulse 70 09/26/22 07:42 Resp 20 09/26/22 07:42 BP 166/96 H 09/26/22 07:42 Pulse Ox 95 09/26/22 07:42 O2 Del Method Room Air 09/26/22 07:42 BMI result Body Mass Index 28.5 Appearing in no acute distress lung sounds are clear to auscultation heart regular rate rhythm, clear S1, S2 positive bowel sounds, abdomen is soft, RUQ tenderness neuro patient is alert x3, no focal deficits Objective Data Active Medications Acetaminophen (Acetaminophen 325 Mg Tablet) 650 mg PO Q6H PRN PRN Reason: Pain, Mild (Pain Scale 1-3) Acetaminophen (Acetaminophen Supp 650 Mg Supp.Rect) 650 mg OK Q6H PRN PRN Reason: Pain, Mild (Pain Scale 1-3) Piperacillin Sod/Tazobactam (Sod 4.5 gm/ Sodium Chloride) 100 mls @ 200 mls/hr IV Q6H [facility] Last Infusion: 09/26/22 07:29 Dose: 0 mls/hr Documented By: NELSONARTEarl Thiamine HCl 100 mg/ Sodium (Chloride) 101 mls @ 202 mls/hr IV DAILY [facility] Last Infusion: 09/26/22 00:46 Dose: 0 mls/hr Documented By: BANDAR Melatonin (Melatonin 3 Mg Tablet) 6 mg PO BEDTIME PRN PRN Reason: Insomnia Morphine Sulfate (Morphine Sulfate 4 Mg/Ml Cartridge) 4 mg IVPUSH Q4H PRN; Protocol PRN Reason: Pain, Severe (Pain Scale 7-10) Last Admin: 09/26/22 06:25 Dose: 4 mg Documented By: ANTOIC Ondansetron HCl (Ondansetron Hcl 4 Mg/2 Ml Vial) 4 mg IVPUSH Q8H PRN PRN Reason: Nausea and Vomiting Pharmacy Consult (Consult Rx Perform Med Rec) 1 each MISCELLANE ONCE PRN PRN Reason: Consult order Sodium Chloride (0.9 % Sodium Chloride Flush 3 Ml Syringe) 3 ml IVFLUSH QSHIFT [facility] Last Admin: 09/26/22 00:26 Dose: 3 ml Documented By: BANDAR Labs 09/26/22 06:06 09/26/22 06:06 Labs: Laboratory Results - last 24 hr 09/25/22 09/25/22 09/25/22 20:24 20:24 20:24 MCV 90.5 MCH 31.1 MCHC 34.4 RDW 11.9 Plt Count 204 MPV 9.1 L Immature Gran % (Auto) 0.4 Neut % (Auto) 88.9 H Lymph % (Auto) 5.7 L [place] % (Auto) 4.5 Eos % (Auto) 0.1 Baso % (Auto) 0.4 Lymph # (Auto) 0.8 L [place] # (Auto) 0.6 Eos # (Auto) 0.0 Baso # (Auto) 0.1 Abs Immat Gran (auto) 0.06 H Absolute Neuts (auto) 12.0 H Absolute Nucleated RBC 0.000 Nucleated RBC % (auto) 0.0 PT 10.5 INR 0.9 Anion Gap Estim Creat Clear Calc Estimated GFR Random Glucose Lactic Acid Calcium Magnesium Total Bilirubin AST ALT Alkaline Phosphatase Troponin I High Sens < 2.7 Total Protein Albumin Lipase Vitamin B12 Folate Urine Opiates Screen Urine Fentanyl Screen Ur Barbiturates Screen Ur Phencyclidine Scrn Ur Amphetamines Screen U Benzodiazepines Scrn Urine Cocaine Screen U Marijuana (THC) Screen Ethyl Alcohol 09/25/22 09/25/22 09/25/22 20:56 23:08 23:58 MCV MCH MCHC RDW Plt Count MPV Immature Gran % (Auto) Neut % (Auto) Lymph % (Auto) [place] % (Auto) Eos % (Auto) Baso % (Auto) Lymph # (Auto) [place] # (Auto) Eos # (Auto) Baso # (Auto) Abs Immat Gran (auto) Absolute Neuts (auto) Absolute Nucleated RBC Nucleated RBC % (auto) PT INR Anion Gap 16 Estim Creat Clear Calc 113.5 Estimated GFR > 60 Random Glucose 116 H Lactic Acid 1.8 Calcium 9.1 Magnesium 1.8 Total Bilirubin 0.5 AST 55 H ALT 29 Alkaline Phosphatase 118 H Troponin I High Sens Total Protein 7.3 Albumin 4.0 Lipase 54 Vitamin B12 193 L Folate 14.0 Urine Opiates Screen POSITIVE H Urine Fentanyl Screen Not Detected Ur Barbiturates Screen Not Detected Ur Phencyclidine Scrn Not Detected Ur Amphetamines Screen Not Detected U Benzodiazepines Scrn Not Detected Urine Cocaine Screen POSITIVE H U Marijuana (THC) Screen POSITIVE H Ethyl Alcohol 128 09/26/22 09/26/22 06:06 06:06 MCV 91.5 MCH 31.3 MCHC 34.2 RDW 11.9 Plt Count 179 MPV 9.1 L Immature Gran % (Auto) 0.4 Neut % (Auto) 67.5 Lymph % (Auto) 19.2 L [place] % (Auto) 11.3 H Eos % (Auto) 1.2 Baso % (Auto) 0.4 Lymph # (Auto) 1.6 [place] # (Auto) 0.9 Eos # (Auto) 0.1 Baso # (Auto) 0.0 Abs Immat Gran (auto) 0.03 Absolute Neuts (auto) 5.5 Absolute Nucleated RBC 0.000 Nucleated RBC % (auto) 0.0 PT INR Anion Gap 12 Estim Creat Clear Calc 118.1 Estimated GFR > 60 Random Glucose 94 Lactic Acid Calcium 8.8 Magnesium Total Bilirubin AST ALT Alkaline Phosphatase Troponin I High Sens Total Protein Albumin Lipase Vitamin B12 Folate Urine Opiates Screen Urine Fentanyl Screen Ur Barbiturates Screen Ur Phencyclidine Scrn Ur Amphetamines Screen U Benzodiazepines Scrn Urine Cocaine Screen U Marijuana (THC) Screen Ethyl Alcohol Assessment and Plan (1) Acute acalculous cholecystitis: Status: Acute Plan This is a 57-year-old male with pertinent history of essential hypertension, polysubstance use disorder, gastroesophageal reflux disease who presents to the emergency department for evaluation of abdominal discomfort. Sepsis due to Acute acalculus cholecystitis.? Zosyn IV morphine p.r.n. for pain control.? Consulted General surgery follow blood cx keep NPO.? HIDA scan today Alcohol use disorder.? start phenobarbitol protocol to avoid withdrawal Consulted Addiction Team.? substance abuse cocaine use on methadone for heroin abuse Consulted Addiction Team Adrenal gland nodule on imaging.? Obtaining urine and plasma fractionated metanephrines and catecholamines. Gastroesophageal reflux disease On PPI Essential hypertension.? Continue home antihypertensives DVT prophylaxis:? Defer Lovenox until surgical evaluation.? SCDs Full Code Attending Dr. Paredes continued hospital stay for IV antibiotics and possible surgical procedure Time Spent With Patient Time: Total time managing care of this patient today ____ minutes. Quality Stroke Does the patient have a stroke diagnosis?: No VTE Prior VTE?: No VTE Risk Level:: Medical - moderate - high VTE Device Contraindication: N/A - Device Ordered VTE Drug Contraindication: Treatment Not Indicated
--- NOTE | 2022-09-26 08:07 | PHA.MEDREC ---
Pharmacy Consult ? Medication Reconciliation Pharmacy has completed the medication reconciliation. Spoke to patient
--- NOTE | 2022-09-26 09:48 | MHC.CM.PN ---
EMR REVIEWED, PT ADMITTED W/ABD PAIN, CM MET W/PT WHO REPORTS HE IS INDEP, WORKS FOR [employer] AND CM DID CONTACT THEM FOR PT, PER REQUEST AND PT WILL NEED A RETURN TO WORK LETTER, CM DISCUSSED SA TX PT WAS POSITIVE FOR COCAINE, OPIATES, MARIJUANA AND +BAL. PT REPORTS HE USES [employer] AND HAS TAKE HOME METHADONE, PT REQUESTING SCRIPT FOR PAIN MEDS ON DC AND DID NOT TELL CM OR NSG HE HAD HIS HOME METHADONE AT BEDSIDE UNTIL QUESTIONED ABOUT CLINIC, PT'S RN AWARE. PT VERIFIES PCP ALEXIS JONES X2 AND PT HAS BEEN EDUCATED ON AND DECLINES TO COMPLETE A HCP AT THIS TIME. D/C PLAN: HOME NO SERVICES W/C SHUTTLE FOR TRANSPORT
--- NOTE | 2022-09-26 11:11 | P.CONGS_ITS ---
History of Present Illness Consult details Consult date: 09/26/22 Requesting physician: Trudy Alcantara Narrative: 57-year-old male patient presenting with history of alcoholic cirrhosis, hepatitis-C, polysubstance abuse presenting with complaints of abdominal pain in the right upper quadrant yesterday he does not remember eating yesterday but does report eating hamburger 2 days prior. He denies a previous history of similar pains. Pain was not associated with nausea or vomiting. He reports having the pain currently but denies any anorexia, nausea or vomiting since admission. Workup in the emergency department revealed and elevated WBC of 13.5 and minimally elevated alkaline phosphatase. His CT abdomen and pelvis revealed ascitic fluid around the liver and gallbladder with an apparent thickened gallbladder wall but no radiopaque gallstones. Subsequent ultrasound also revealed a thickened gallbladder with no gallstones suggestive of acalculous cholecystitis. Repeat laboratories revealed normal WBC. Surgical consultation is requested for evaluation of gallbladder disease. Review of Systems Review of Systems: Yes all other systems are reviewed and are negative Constitutional: Constitutional: Denies chills, Denies fever(s), Denies headache(s), Denies poor appetite and Denies weakness ENT: Denies headache(s) Cardiovascular: Cardiovascular: Denies chest pain, Denies irregular heart rhythm, Denies palpitations and Denies dyspnea Respiratory: Respiratory: Denies cough, Denies excessive phlegm production and Denies dyspnea Gastrointestinal: Gastrointestinal: Reports as per HPI, Reports abdominal pain, Denies bloating, Denies change in bowel habits, Denies constipation, Denies heartburn, Denies diarrhea, Denies nausea and Denies vomiting Genitourinary: Genitourinary: Denies difficulty urinating and Denies urinary frequency Musculoskeletal: Musculoskeletal: Denies back pain, Denies muscle weakness and Denies numbness Integumentary/Breasts: Skin/Breast: Denies changing lesions and Denies unusual bruising Neurologic: Denies headache(s), Denies numbness, Denies paresthesias and Denies weakness Psychiatric: Psychiatric: Denies anxiety and Denies depression Endocrine: Endocrine: Denies palpitations Hematologic/Lymphatic: Hematologic/Lymphatic: Denies lymphadenopathy [facility] Past Medical History Medical History Acid reflux HCV (hepatitis C virus) Hepatic cirrhosis Hernia HTN (hypertension) Family History Family History Father No problems noted. Mother No problems noted. Son No problems noted. Daughter No problems noted. Social History Social History Household Members: Family Housing: House Do you presently have visiting nurse or other home services: No Alcohol intake: current Alcohol intake frequency: 3 or more drinks per day Alcohol type: beer Patient Tobacco Use Status: Tobacco use Unknown Cigarette Packs Per Day: 0.50 Substance Use Type: Crack/Cocaine service: No Current occupational status: unemployed Meds Allergies Allergy/AdvReac Type Severity Reaction Status Date / Time No Known Allergies Allergy Unverified 01/02/20 15:29 [No Known Allergies*] Active Medications: Current Medications Acetaminophen (Acetaminophen 325 Mg Tablet) 650 mg PO Q6H PRN PRN Reason: Pain, Mild (Pain Scale 1-3) Acetaminophen (Acetaminophen Supp 650 Mg Supp.Rect) 650 mg [place] Q6H PRN PRN Reason: Pain, Mild (Pain Scale 1-3) Piperacillin Sod/Tazobactam (Sod 4.5 gm/ Sodium Chloride) 100 mls @ 200 mls/hr IV Q6H [facility] Last Infusion: 09/26/22 07:29 Dose: Infused Thiamine HCl 100 mg/ Sodium (Chloride) 101 mls @ 202 mls/hr IV DAILY [facility] Last Infusion: 09/26/22 09:32 Dose: Infused Melatonin (Melatonin 3 Mg Tablet) 6 mg PO BEDTIME PRN PRN Reason: Insomnia Morphine Sulfate (Morphine Sulfate 4 Mg/Ml Cartridge) 4 mg IVPUSH Q4H PRN; Prot ocol PRN Reason: Pain, Severe (Pain Scale 7-10) Last Admin: 09/26/22 06:25 Dose: 4 mg Ondansetron HCl (Ondansetron Hcl 4 Mg/2 Ml Vial) 4 mg IVPUSH Q8H PRN PRN Reason: Nausea and Vomiting Pharmacy Consult (Consult Rx Perform Med Rec) 1 each MISCELLANE ONCE PRN PRN Reason: Consult order Pharmacy Consult (Consult Rx Etoh Phenob Im/Po) 1 each MISCELLANE ONCE PRN; Protocol PRN Reason: Consult order Phenobarbital (Phenobarbital 15 Mg Tablet) 45 mg PO BID [facility]; Protocol Stop: 09/28/22 09:01 Phenobarbital (Phenobarbital 30 Mg Tablet) 30 mg PO BID [facility]; Protocol Stop: 09/30/22 09:01 Phenobarbital (Phenobarbital 30 Mg Tablet) 30 mg PO DAILY [facility]; Protocol Stop: 10/02/22 09:01 Phenobarbital Sodium (Phenobarbital Sodium 130 Mg/Ml Vial Im Q3hx2) 164 mg IM Q3H [facility]; Protocol Stop: 09/26/22 15:01 Sodium Chloride (0.9 % Sodium Chloride Flush 3 Ml Syringe) 3 ml IVFLUSH QSHIFT [facility] Last Admin: 09/26/22 08:55 Dose: 3 ml Home Medications Medication Instructions Recorded Confirmed Last Taken Type amlodipine 10 mg tablet 10 mg PO DAILY 03/04/20 09/26/22 Unknown History aspirin 325 mg tablet,delayed 325 mg PO DAILY 03/04/20 09/26/22 Unknown History release lisinopril 40 mg tablet 40 mg PO DAILY 03/04/20 09/26/22 Unknown History omeprazole 20 mg capsule,delayed 20 mg PO DAILY 03/04/20 09/26/22 Unknown History release clonidine HCl 0.1 mg tablet 0.1 mg PO BID PRN anxiety 09/26/22 09/26/22 Unknown History hydrochlorothiazide 25 mg tablet 25 mg PO DAILY 09/26/22 09/26/22 Unknown History hydroxyzine HCl 50 mg tablet 50 mg PO BEDTIME PRN anxiety 09/26/22 09/26/22 Unknown History methadone 10 mg/mL oral 70 mg PO DAILY 09/26/22 Unknown History concentrate (Methadone Intensol) trazodone 50 mg tablet 50 mg PO BEDTIME PRN insomnia 09/26/22 09/26/22 Unknown History Physical Exam Vital Signs: Vital Signs: Last Vital Signs Temp 98.9 F 09/26/22 07:42 Pulse 70 09/26/22 07:42 Resp 20 09/26/22 07:42 BP 166/96 H 09/26/22 07:42 Pulse Ox 95 09/26/22 07:42 O2 Del Method Room Air 09/26/22 07:42 BMI result Body Mass Index 28.5 Const: General: cooperative and no acute distress Nutritional Appearance: well nourished Orientation/consciousness: patient oriented x3 Limitations: no limitations HEENT: Head: Yes normocephalic and Yes atraumatic Ears: hearing grossly normal bilaterally Resp: Effort & Inspection: normal respiratory effort, no audible wheezes, no cough and no respiratory distress Cardio: Jugular venous distension: no JVD GI: Inspection: Yes normal to inspection Palpation (GI): Soft to palpation, Tenderness to palpation present (GI) in the RUQ, no guarding, not rigid and No hepatosplenomegaly present Percussion: Yes normal to percussion Auscultation: normal bowel sounds Rectal Exam - Male: Yes deferred Skin: Other: Warm, dry, no rash General skin exam: no jaundice Neuro: General: patient oriented x3 Extrem: General: Yes no clubbing, cyanosis or edema Results Labs 09/26/22 06:06 09/26/22 06:06 Labs: Abnormal lab results 09/25/22 09/25/22 09/25/22 Range/Units 20:24 20:56 23:58 WBC 13.5 H (4.8-10.8) X10*3/uL RBC (4.60-5.80) X10*6/uL Hgb (14.0-18.0) g/dl Hct (42.0-52.0) % MPV 9.1 L (9.4-12.4) fL Neut % (Auto) 88.9 H (45-73) % Lymph % (Auto) 5.7 L (20-40) % Sterling % (Auto) (2-11) % Lymph # (Auto) 0.8 L (1.2-4.9) X10*3/uL Abs Immat Gran (auto) 0.06 H (0.00-0.03) X10*3/uL Absolute Neuts (auto) 12.0 H (2.0-8.3) x10*3/uL Random Glucose 116 H (60-115) mg/dL AST 55 H (5-37) U/L Alkaline Phosphatase 118 H (39-117) U/L Vitamin B12 193 L (200-900) pg/mL Urine Opiates Screen POSITIVE H (Not Detect) Urine Cocaine Screen POSITIVE H (Not Detect) U Marijuana (THC) Screen POSITIVE H (Not Detect) 09/26/22 Range/Units 06:06 WBC (4.8-10.8) X10*3/uL RBC 4.22 L (4.60-5.80) X10*6/uL Hgb 13.2 L (14.0-18.0) g/dl Hct 38.6 L (42.0-52.0) % MPV 9.1 L (9.4-12.4) fL Neut % (Auto) (45-73) % Lymph % (Auto) 19.2 L (20-40) % Sterling % (Auto) 11.3 H (2-11) % Lymph # (Auto) (1.2-4.9) X10*3/uL Abs Immat Gran (auto) (0.00-0.03) X10*3/uL Absolute Neuts (auto) (2.0-8.3) x10*3/uL Random Glucose (60-115) mg/dL AST (5-37) U/L Alkaline Phosphatase (39-117) U/L Vitamin B12 (200-900) pg/mL Urine Opiates Screen (Not Detect) Urine Cocaine Screen (Not Detect) U Marijuana (THC) Screen (Not Detect) Short CBC 09/25/22 09/26/22 Range/Units 20:24 06:06 WBC 13.5 H 8.1 (4.8-10.8) X10*3/uL Hgb 15.0 13.2 L (14.0-18.0) g/dl Hct 43.6 38.6 L (42.0-52.0) % Plt Count 204 179 (160-400) X10*3/uL BMP 09/25/22 09/26/22 20:56 06:06 Sodium 138 137 Potassium 4.8 4.2 Chloride 100 100 Carbon Dioxide 27 29 BUN 11 10 Creatinine 0.78 0.75 Calcium 9.1 8.8 Liver Function 09/25/22 Range/Units 20:56 Total Bilirubin 0.5 (0.0-1.0) mg/dL AST 55 H (5-37) U/L ALT 29 (0-40) U/L Alkaline Phosphatase 118 H (39-117) U/L Albumin 4.0 (3.5-5.0) g/dL All other labs normal. Assessment and Plan (1) Alcoholic cirrhosis of liver: Status: Acute (2) Acute acalculous cholecystitis: Status: Acute Plan 57-year-old male patient presenting with complaints of right upper quadrant pain of 2 days duration. Patient has a history of alcoholic cirrhosis and hepatitis-C. There is intraperitoneal fluid suggestive of ascites. CT and ultrasound findings revealed a thickened gallbladder wall however this may be a result of the alcoholic liver disease. Recommend obtaining a HIDA scan to better evaluate gallbladder function and evaluate for cholecystitis. Discussed with patient he expressed understanding and agrees with the plan. Time Spent With Patient Time: Total time managing care of this patient today ____ minutes. Procedures Date of Service Date of Service: 09/26/22
--- NOTE | 2022-09-26 14:28 | MHC.RECOVRN ---
Met with pt in 477 after consult placed to Addiction Medicine for alcohol use. Pt sitting on bed, awake, alert, easily engages in conversation. Pt reports alcohol use, 4-5 24 oz beers daily x years. Pt states I like my beer. Pt denies receiving tx for the past for AUD, has not been told in the past he has AUD, is not presently concerned with his alcohol use. Pt reports he goes to [facility] and receives methadone take home bottles, 70 mg daily, last dose yesterday. Pt reports being on methadone x 1 year. Pt reports recovery from opioids is going well. Pt states I'm good. Pt looking forward to going back to work and staying busy. Pt provided with recovery resources if needed, as well as t/w contact information. Encouraged to reach out if pt is interested in discussing recovery further. Denies questions or concerns. Discussed with Daisy Dewey APRN.
[2022-09-26] MEDS: lisinopriL 40 MG TABLET PO (15:44)
[2022-09-26] MEDS: amLODIPine Besylate 10 MG TABLET PO (15:44)
[2022-09-26] MEDS: hydroCHLOROthiazide 25 MG TABLET PO (15:44)
[2022-09-26 15:45] VITALS: BP 177/96; PULSE 83; RESP 18; TEMP 37.2; O2SAT 96
[2022-09-26] MEDS: LORazepam 0.5 MG TABLET 0.25 MG PO (15:45)
[2022-09-26] MEDS: Aspirin Enteric Coated 325 MG TABLET.DR PO (15:48)
--- NOTE | 2022-09-26 17:49 | PC.NURSE ---
report received from overnight RN, first rounds completed, board updated and introduced self to patient. junior linux administrator per JUN. no c/o pain at this time. Pt admitted to pillowcase cutter to having his methadone in his backpack, this RN was notified and went in to tell the patient we would have to take it from his room and send it to pharmacy until he was discharged. Pt found to have all home meds, all meds taken out of room. Security called and notified of situation and came to search room and belongings to ensure safety for patient. Medicine verified with another RN, controlled substances sealed and brought to pharmacy. Non controlled substanced left in pt specific bin at nursing station. Pt informed that he will get all his medications back at time of discharge. safety precautions remain in place, pt encouraged to call for assistance.
[2022-09-26] MEDS: PHENobarbitaL 15 MG TABLET 45 MG PO (21:11)
[2022-09-26] MEDS: cloNIDine HCL 0.1 MG TABLET PO (21:15)
[2022-09-26] MEDS: traZODone HCL 50 MG TABLET PO (21:15)
[2022-09-27] VITALS: BP 117/74; PULSE 82; RESP 18; TEMP 36.8; O2SAT 94
[2022-09-27] MEDS: 0.9 % Sodium Chloride Flush 3 ML SYRINGE IVFLUSH ×2 (00:05→09:57)
[2022-09-27] MEDS: Piperacillin Sodium/Tazobactam 4.5 GM in 0.9 % Sodium Chloride 100 ML IV ×2 (04:01→09:58)
[2022-09-27 07:19] VITALS: BP 116/67; PULSE 72; RESP 20; TEMP 36.6; O2SAT 97
--- NOTE | 2022-09-27 07:45 | PM.PNGS ---
Subjective Subjective Date of Service: 09/27/22 Patient reports: no new complaints Physical Exam Vital Signs: Vital Signs: Last Vital Signs Temp 97.9 F 09/27/22 07:19 Pulse 72 09/27/22 07:19 Resp 20 09/27/22 07:19 BP 116/67 09/27/22 07:19 Pulse Ox 97 09/27/22 07:19 O2 Del Method Room Air 09/27/22 07:19 BMI result Body Mass Index 28.5 Const: General: no acute distress Eyes: Sclerae: sclerae normal GI: Inspection: Yes normal to inspection Palpation (GI): Soft to palpation, nontender and no guarding Skin: General skin exam: no rashes or lesions noted and no jaundice Objective Data Active Medications Acetaminophen (Acetaminophen 325 Mg Tablet) 650 mg PO Q6H PRN PRN Reason: Pain, Mild (Pain Scale 1-3) Acetaminophen (Acetaminophen Supp 650 Mg Supp.Rect) 650 mg [place] Q6H PRN PRN Reason: Pain, Mild (Pain Scale 1-3) Amlodipine Besylate (Amlodipine Besylate 10 Mg Tablet) 10 mg PO DAILY [facility]; Protocol Last Admin: 09/26/22 15:44 Dose: 10 mg Documented By: RAMON Aspirin (Aspirin Enteric Coated 325 Mg Tablet.) 325 mg PO DAILY [facility] Last Admin: 09/26/22 15:48 Dose: 325 mg Documented By: RAMON Comments: late admin d/t pt off floor for scan Bisacodyl (Bisacodyl 5 Mg Tablet.) 5 mg PO ONCE [facility] Clonidine HCl (Clonidine Hcl 0.1 Mg Tablet) 0.1 mg PO BID PRN; Protocol PRN Reason: anxiety Last Admin: 09/26/22 21:15 Dose: 0.1 mg Documented By: KENA Hydrochlorothiazide (Hydrochlorothiazide 25 Mg Tablet) 25 mg PO DAILY [facility]; Protocol Last Admin: 09/26/22 15:44 Dose: 25 mg Documented By: RAMON Hydroxyzine HCl (Hydroxyzine Hcl 50 Mg Tablet) 50 mg PO BEDTIME PRN PRN Reason: anxiety Thiamine HCl 100 mg/ Sodium (Chloride) 101 mls @ 202 mls/hr IV DAILY [facility] Last Infusion: 09/26/22 09:32 Dose: 0 mls/hr Documented By: [email or web address] Piperacillin Sod/Tazobactam (Sod 4.5 gm/ Sodium Chloride) 100 mls @ 200 mls/hr IV Q6H [facility] Last Infusion: 09/27/22 04:31 Dose: 0 mls/hr Documented By: ABBY Lisinopril (Lisinopril 40 Mg Tablet) 40 mg PO DAILY [facility]; Protocol Last Admin: 09/26/22 15:44 Dose: 40 mg Documented By: RAMON Melatonin (Melatonin 3 Mg Tablet) 6 mg PO BEDTIME PRN PRN Reason: Insomnia Morphine Sulfate (Morphine Sulfate 4 Mg/Ml Cartridge) 4 mg IVPUSH Q4H PRN; Protocol PRN Reason: Pain, Severe (Pain Scale 7-10) Last Admin: 09/26/22 06:25 Dose: 4 mg Documented By: ANTSAHARA Omeprazole (Omeprazole 20 Mg Capsule.Dr) 20 mg PO DAILY@629 [facility] Ondansetron HCl (Ondansetron Hcl 4 Mg/2 Ml Vial) 4 mg IVPUSH Q8H PRN PRN Reason: Nausea and Vomiting Pharmacy Consult (Consult Rx Perform Med Rec) 1 each MISCELLANE ONCE PRN PRN Reason: Consult order Pharmacy Consult (Consult Rx Etoh Phenob Im/Po) 1 each MISCELLANE ONCE PRN; Protocol PRN Reason: Consult order Phenobarbital (Phenobarbital 15 Mg Tablet) 45 mg PO BID [facility]; Protocol Stop: 09/28/22 09:01 Last Admin: 09/26/22 21:11 Dose: 45 mg Documented By: KENA Phenobarbital (Phenobarbital 30 Mg Tablet) 30 mg PO BID [facility]; Protocol Stop: 09/30/22 09:01 Phenobarbital (Phenobarbital 30 Mg Tablet) 30 mg PO DAILY [facility]; Protocol Stop: 10/02/22 09:01 Sodium Chloride (0.9 % Sodium Chloride Flush 3 Ml Syringe) 3 ml IVFLUSH [facility] Last Admin: 09/27/22 00:05 Dose: 3 ml Documented By: ABBY Trazodone HCl (Trazodone Hcl 50 Mg Tablet) 50 mg PO BEDTIME PRN PRN Reason: insomnia Last Admin: 09/26/22 21:15 Dose: 50 mg Documented By: KENA Labs 09/26/22 06:06 09/26/22 06:06 Imaging US - abdomen: Radiologist's impression: Impressions Hepatobiliary Scan Nuclear Medicine 09/26/22 13:45 IMPRESSION: Visualization of the gallbladder is evidence of a patent cystic duct and strong evidence against the diagnosis of acute cholecystitis. The common bile duct is patent. Gallbladder emptying and ejection fraction are normal. Liver function appears normal. Microbiology Microbiology Results: Microbiology 09/25/22 23:28 Blood Culture - Preliminary Blood - Venous No growth after 24 hours. 09/25/22 23:28 Blood Culture - Preliminary Blood - Venous No growth after 24 hours. Procedures Date of Service Date of Service: 09/27/22 Progress Note: A&P Assessment and plan (1) Acute acalculous cholecystitis: Status: Acute (2) Alcoholic cirrhosis of liver: Status: Acute Plan 57-year-old male patient presenting with complaints of right upper quadrant abdominal pain found to have a mildly elevated WBC. CT abdomen and pelvis as well as ultrasound abdomen revealed a thickened gallbladder. Also evident is ascitic fluid noted in the right upper quadrant and pelvis. Findings raise the suspicion of acalculous cholecystitis however HIDA scan yesterday revealed filling of the gallbladder without cystic duct obstruction and normal emptying of the gallbladder. There is no evidence of acute acalculous cholecystitis based on this study. Agree with advancing diet. No surgical intervention anticipated. Please re-consult service as needed. Time Spent With Patient Time: Total time managing care of this patient today ____ minutes. Quality Stroke Does the patient have a stroke diagnosis?: No VTE Prior VTE?: No VTE Risk Level:: Medical - moderate - high VTE Device Contraindication: N/A - Device Ordered VTE Drug Contraindication: Treatment Not Indicated
--- NOTE | 2022-09-27 08:32 | PM.EVENT ---
Event Note Date of Service: 09/27/22 Event Note: Addiction consult placed Patient seen by morgue keeper, please see note dated 09/26/22 Time Spent With Patient Time: Total time managing care of this patient today ____ minutes.
--- NOTE | 2022-09-27 09:22 | PM.DS ---
DS: Providers Provider Date of Service: 09/27/22 Date of admission: 09/25/22 23:52 Primary care physician: [facility] Consults: 09/25/22 23:37 Addiction Medicine Routine Consulting Provider: Addiction Covering Reason for consultation: cocaine and alcohol use disorder 09/25/22 23:52 Consult to General Surgery Routine Consulting Provider: [facility] Reason for consultation: Cholecystitis DS: Diagnosis Discharge Diagnosis (1) Acute acalculous cholecystitis: Status: Acute (2) Alcoholic cirrhosis of liver: Status: Acute DS: Summary Hospital Course Hospital Course: HP as per admitting provider This is a 57-year-old male with pertinent history of essential hypertension, polysubstance use disorder, gastroesophageal reflux disease who presents to the emergency department for evaluation of abdominal discomfort.? Patient states he is having right upper quadrant abdominal pain that started 1 day prior to presentation.? It has been constant and without any relief.? It radiates to the epigastric region and the back.? No relieving factors.? Also has associated nausea.? No vomiting.? Patient denies fever, chills, chest discomfort, palpitations, shortness of breath, changes in urinary or bowel habits.? Admits to drinking beers every day and using cocaine. In the emergency department, imaging concerning for acalculous cholecystitis Abdominal pain. Initially thought to be sepsis due to acute acalculous cholecystitis. Treated with IV Zosyn, seen and evaluated by General surgery. HIDA scan showed no evidence to suggest acute cholecystitis. Symptoms likely secondary to gastritis as patient has a history of chronic alcohol abuse for which he was on phenobarbital protocol however he declined any doses. He should continue PPI for likely gastritis and stop drinking alcohol Alcohol abuse. Decline phenobarbital. educated on not drinking alcohol substance abuse. Uses cocaine, has been on methadone Adrenal gland nodule on imaging.?urine and plasma fractionated metanephrines and catecholamines obtained, results should be followed up by primary care provider Gastroesophageal reflux disease On PPI Essential hypertension.? Continue home antihypertensives Time Spent with Patient Time attestation: Total time managing care of this patient today ____ minutes. Discharge coordination time: Greater than 30 minutes Quality: Safe Use of Opioids Does Pt have an Active Cancer Diagnosis on the Problem List?: No Quality: Stroke Does the patient have a stroke diagnosis?: No Physical Exam Vital Signs: Vital Signs: Last Vital Signs Temp 97.9 F 09/27/22 07:19 Pulse 72 09/27/22 07:19 Resp 20 09/27/22 07:19 BP 116/67 09/27/22 07:19 Pulse Ox 97 09/27/22 07:19 O2 Del Method Room Air 09/27/22 07:19 BMI result Body Mass Index 28.5 Appearing in no acute distress head is normocephalic atraumatic eyes pupils are PERRLA sclera is anicteric mouth throat mucous membranes are intact and moist neck is supple no lymphadenopathy, no JVD noted lung sounds are clear to auscultation heart regular rate rhythm, clear S1, S2 positive bowel sounds, abdomen is soft, nontender neuro patient is alert x3, no focal deficits DS: Data Data Completed and Pending Labs on day of discharge: Preliminary micro results at discharge 09/25/22 23:28 Blood Culture - Preliminary Blood - Venous No growth after 24 hours. 09/25/22 23:28 Blood Culture - Preliminary Blood - Venous No growth after 24 hours. Discharge Plan Discharge Anticipated Discharge Date/Time: 09/27/22 09:12 Patient Disposition: Home, Self-Care Discharge Diagnosis: Abdominal pain gastritis Referrals: [place] [Primary Care Provider] - 1 Week Discharge Medications: Continued clonidine HCl 0.1 mg tablet 0.1 mg PO BID PRN (Reason: anxiety) trazodone 50 mg tablet 50 mg PO BEDTIME PRN (Reason: insomnia) hydroxyzine HCl 50 mg tablet 50 mg PO BEDTIME PRN (Reason: anxiety) hydrochlorothiazide 25 mg tablet 25 mg PO DAILY methadone [Methadone Intensol] 10 mg/mL Concentrate 70 mg PO DAILY omeprazole 20 mg capsule,delayed release(DR/EC) 20 mg PO DAILY lisinopril 40 mg tablet 40 mg PO DAILY amlodipine 10 mg tablet 10 mg PO DAILY aspirin 325 mg tablet,delayed release (DR/EC) 325 mg PO DAILY bisacodyl [Dulcolax (bisacodyl)] 5 mg tablet,delayed release (DR/EC) 5 mg PO ONCE 1 Days Qty: 2 0RF Discharge Orders: Discharge Order (Routine); Ordered 09/27/22 Ordered By: Trudy Alcantara Diet: Advance to usual diet Activity on Discharge: As tolerated Stand Alone Forms: Patient Portal Discharge page, Work/School Release Care Plan Goals: Complete resolution of symptoms Health Concerns: Abdominal pain gastritis Plan of Treatment: Follow-up with primary care provider as needed Take all medications as prescribed take methadone as prescribed Assessment: See discharge summary
--- NOTE | 2022-09-27 09:24 | HE.PHANOTE ---
RE: methadone received verifications form from [facility], last dose 70mg on 09/22/22 @5635am
--- NOTE | 2022-09-27 09:49 | MHC.CM.PN ---
Addendum entered by Savanna Child RN 09/27/22 09:56: CLARIFICATION PT USES [facility] [place] FOR MMTP. Original Note: PT MEDICALLY CLEARED FOR D/C HOME SELF CARE W/RESUMP OF [facility] MMTP, PT WILL BE SET UP W/[facility] SHUTTLE IF NO RIDE
[2022-09-27] MEDS: amLODIPine Besylate 10 MG TABLET PO (09:57)
[2022-09-27] MEDS: lisinopriL 40 MG TABLET PO (09:57)
[2022-09-27] MEDS: PHENobarbitaL 15 MG TABLET 45 MG PO (09:57)
[2022-09-27] MEDS: Aspirin Enteric Coated 325 MG TABLET.DR PO (09:57)
[2022-09-27] MEDS: hydroCHLOROthiazide 25 MG TABLET PO (09:58)
[2022-09-27] MEDS: Omeprazole 20 MG CAPSULE.DR PO (09:58)
[2022-09-27] MEDS: Thiamine HCL 100 MG in 0.9 % Sodium Chloride 100 ML 202 MG IV (09:58)
[2022-10-01 12:07] LABS: Metanephrine, Free 36 pg/mL (<=57); Normetanephrines, Free 74 pg/mL (<=148); Total Metanephrine, Free 110 pg/mL (<=205)
[2022-10-11 06:59] LABS: Creatinine Random Urine 85 mg/dL (20-320); Metanephrine, Free Rand Ur 114 mcg/g cr (21-153); Normetanephrine, Free Rand Ur 329 mcg/g cr (108-524); Total Metanephrine, Free RU 443 mcg/g cr (149-603)
[2022-10-17 12:43] LABS: Catecholamine Frac, Total 479 pg/mL
== END 2022-09-27 12:34 | disposition home or self-care (01) | DRG 241 ==
LOC: HO.ED 23:55 → HO.EDOVER 23:58 → HO.IMC 09-26 00:06
PROVIDERS: Admitting Provider Student in an Organized Health Care Education/Training Program; Emergency Provider Internal Medicine; PCP Family Medicine; Visit Provider Nurse Practitioner Acute Care
DX: K29.20 Alcoholic gastritis without bleeding (principal); K70.30 Alcoholic cirrhosis of liver without ascites; F11.20 Opioid dependence, uncomplicated; F14.10 Cocaine abuse, uncomplicated; I10 Essential (primary) hypertension; K21.9 Gastro-esophageal reflux disease without esophagitis; Y90.6 Blood alcohol level of 120-199 mg/100 ml; I25.2 Old myocardial infarction; Z79.82 Long term (current) use of aspirin; Z79.899 Other long term (current) drug therapy
CPT/HCPCS: 36415; 71045; 74177; 76705; 78227; 80048; 80053; 80307; 82384; 82607; 82746; 83605; 83690; 83735; 83835; 84484; 85025; 85610; 87040; 93005; 99222; 99285; A9537; J2270; J2405; J2543; J2805; J3411; Q9967

== ENCOUNTER 2023-01-23 00:13 | Emergency (ER) | payer MEDICAID, SELFPAY ==
[2023-01-23 00:29] VITALS: BP 142/80; PULSE 98; O2SAT 98
== END 2023-01-23 01:20 | disposition left against medical advice (07) ==
PROVIDERS: Emergency Provider Emergency Medicine
DX: M54.50 Low back pain, unspecified (principal); M79.671 Pain in right foot